=== PATIENT | male | born 1970 | race Caucasian/White ===

== ENCOUNTER 2016-09-08 17:28 | Emergency (ER) | payer BC, OTHER ==
[~2016-09-08 17:28] MED LIST: BACTRIM DS TABL1 TA1 PO; FLEXERIL10 MG PO; INDOMETHACIN50 MG PO; NAPROSYN500 MG PO; VOLTAREN75 MG PO
[2016-09-23] MEDS ORDERED: NO MEDICATIONS (14:24)
== END 2016-09-08 18:15 | disposition home or self-care (01) ==
LOC: CED 17:28 → CFTX 17:28 → CED 18:13 → CFTX 18:13
DX: L02.212 Cutaneous abscess of back [any part, except buttock and flank] (principal); Z90.49 Acquired absence of other specified parts of digestive tract; F17.200 Nicotine dependence, unspecified, uncomplicated
CPT/HCPCS: 10060; 99283

== ENCOUNTER → 2016-09-30 | Day surgery (SDC) | payer OTHER ==
[~2016-09-30] MED LIST changes: +NO MEDICATIONS
--- NOTE | ~2016-09-30 | OR ---
Unit #: [id number] #: [id number] Patient: LAYTON TUCKER [id number] [address] [place], [place] [address] [id number] MR#: [id number] NAME: LAYTON TUCKER ROOM: Date of Procedure: 09/30/2016 Admission Date: 09/30/2016 Surgeon: Michael Giordano Jr., M.D. : 1970 Attending Physician: Michael Giordano Jr., M.D. Referring Physician: Michael Giordano Jr., M.D. Primary Care Physician: Primary Care Physician No OPERATIVE REPORT INDICATION FOR PROCEDURE The patient is a 46-year-old white male, recently presented to the office complaining of a bulge in the right inguinal area. He was noted to have an obvious right inguinal hernia. It was felt he should have this repaired since he has had some discomfort related to it and it is enlarging in size. PREOPERATIVE DIAGNOSIS Enlarging symptomatic right inguinal hernia. POSTOPERATIVE DIAGNOSES Enlarging symptomatic right inguinal hernia, noting a large direct inguinal hernia. ANESTHESIA General with LMA and 0.5% Marcaine with epinephrine locally in the area of the incision as a field block. PROCEDURE PERFORMED Right inguinal hernia repair using plug and patch technique using 2 extra large plugs in the entire floor of the inguinal canal. DESCRIPTION OF PROCEDURE The patient was positioned in supine position. After being anesthetized, he was prepped and draped in routine fashion for right inguinal hernia repair. The right inguinal area was locally blocked with 0.5% Marcaine with epinephrine as a field block. A transverse incision was made over the right inguinal canal. This was carried down through the subcutaneous tissue through Alina and Camper fascia and the external oblique fascia. The fibers of external oblique were then split from the external ring up past the internal ring. The cord structures elevated from the pubic tubercle and freed back to the internal ring and the base checked. There was no evidence of any indirect sac, but the entire floor of the inguinal canal was weak and had an obvious hernia compatible with a direct inguinal hernia. After transecting a few cremasteric fibers of the Bovie cautery mobilizing the cord, the attenuated transversalis fascia in the floor of the inguinal canal was then scored with a Bovie cautery and 2 extra large plugs were placed in the retroperitoneal space and sutured to the fascia circumferentially with interrupted 0 Ethibond sutures. The patch was placed over the floor of the inguinal canal and sutured circumferentially with interrupted 0 Ethibond sutures. The wound was irrigated with antibiotic solution, which was also used to presoak the plug and patch. Unit #: [id number] #: [id number] Patient: LAYTON TUCKER The ilioinguinal nerve had been retracted laterally to avoid any entrapment or damage. It was then replaced along with the cord structures on top of the mesh and the external oblique fascia closed with continuous 3-0 Vicryl suture. The wounds were irrigated with antibiotic solution and after hemostasis achieved with Bovie cautery, Alina and Camper fascia were approximated with interrupted 3-0 Vicryl sutures. Skin edges approximated with stainless-steel skin clips and skin stapling device. Sterile dressings were applied externally. Estimated blood loss less than 75 mL. The patient received less than 2000 mL crystalloid solution during the procedure. Sponges and instrument counts were correct x3. No drains were used. No complications. The patient was taken to the recovery room with stable vital signs in satisfactory condition. Dictated by... iMchael Giordano Jr. MAna COX/earl TD: 09/30/2016 13:29 JOB #: [id number] OPERATIVE REPORT Page 1 of 1 X Michael Giordano MD X PROCEDURE OPERATIVE NOTE
== END | disposition home or self-care (01) ==
LOC: CSUR 07:43
DX: K40.90 Unilateral inguinal hernia, without obstruction or gangrene, not specified as recurrent (principal); F17.210 Nicotine dependence, cigarettes, uncomplicated; Z90.49 Acquired absence of other specified parts of digestive tract; Z98.52 Vasectomy status
CPT/HCPCS: J0690; J2250; J2405; J3010; J3370